=== PATIENT | male | born 1980 | race Caucasian/White ===

== ENCOUNTER 2017-09-05 15:00 | Inpatient (IN) | payer BC ==
[~2017-09-05] VITALS: Ht 180.3 cm; Wt 137.0 kg
[2017-09-05 16:40] LABS: CALCIUM 8.8 mg/dL (8.5-10.1); CARBON DIOXIDE 26.2 mmol/L (21-32); CHLORIDE SERUM 97 mmol/L (98-107); GFR1 > 60 mL/min; GLUCOSE SERUM 187 mg/dL (74-106); POTASSIUM SERUM 3.7 mmol/L (3.5-5.1); SODIUM SERUM 133 mmol/L (136-145)
[2017-09-05 16:51] LABS: PLATELET COUNT 257 x10^3mcL (130-400)
[2017-09-05 16:52] LABS: BASOPHIL % 0 % (0-2)
[2017-09-05] MEDS ORDERED: METFORMIN HCL500 MG PO (19:01)
[2017-09-05 19:45] VITALS: BP 139/75
[2017-09-05 19:47] VITALS: Ht 180.3 cm; Wt 137.0 kg
[2017-09-05 20:22] LABS: MAGNESIUM 1.8 mg/dL (1.8-2.4); PHOSPHOROUS 2.9 mg/dL (2.5-4.9)
[2017-09-05 20:24] LABS: CHOLESTEROL/HDL RATIO 5.3
[2017-09-05 20:29] LABS: T3 TOTAL 0.72 ng/mL
[2017-09-05 20:41] LABS: FREE T4 1.2 ng/dL (0.76-1.46); FREE THYROXINE INDEX 2.6 ug/dL (1.4-4.5)
[2017-09-06 00:26] LABS: UA SPECIFIC GRAVITY <=1.005 (1.005-1.035); microscopic required? YES; urine erythrocyte TRACE (NEGATIVE)
[2017-09-06 05:30] VITALS: BP 113/52
[2017-09-06 06:11] LABS: PLATELET COUNT 238 x10^3mcL (130-400); RED CELL DISTRIBUTION WIDTH 13.1 % (11.5-14.5)
[2017-09-06 06:27] LABS: CALCIUM 8.8 mg/dL (8.5-10.1); CARBON DIOXIDE 24.4 mmol/L (21-32); CHLORIDE SERUM 99 mmol/L (98-107); CREATININE SERUM 0.9 mg/dL (0.7-1.3); GFR1 > 60 mL/min; GLUCOSE SERUM 191 mg/dL (74-106); POTASSIUM SERUM 3.4 mmol/L (3.5-5.1); SODIUM SERUM 136 mmol/L (136-145)
[2017-09-06 06:34] LABS: BASOPHIL % 0 % (0-2)
[2017-09-06 08:00] VITALS: BP 139/70
[2017-09-06 09:31] VITALS: BP 116/77
[2017-09-06 12:48] VITALS: BP 113/62
[2017-09-06 17:03] VITALS: BP 152/84
[2017-09-06 21:05] VITALS: BP 150/75
[2017-09-07 05:29] VITALS: BP 132/76
[2017-09-07 06:59] LABS: CARBON DIOXIDE 26.2 mmol/L (21-32); CHLORIDE SERUM 101 mmol/L (98-107); CREATININE SERUM 0.9 mg/dL (0.7-1.3); GFR1 > 60 mL/min; GLUCOSE SERUM 185 mg/dL (74-106); MAGNESIUM 2.1 mg/dL (1.8-2.4); PHOSPHOROUS 2.8 mg/dL (2.5-4.9); POTASSIUM SERUM 3.7 mmol/L (3.5-5.1); SODIUM SERUM 137 mmol/L (136-145)
[2017-09-07 07:02] LABS: BASOPHIL % 0 % (0-2); PLATELET COUNT 251 x10^3mcL (130-400); RED CELL DISTRIBUTION WIDTH 13.1 % (11.5-14.5)
[2017-09-07 09:40] VITALS: BP 147/69
[2017-09-07 13:58] LABS: RED BLOOD CELLS 4.4 M/mm3 (4.52-5.90)
[2017-09-07 14:18] LABS: IRON 19 ug/dL (65-170); TOTAL IRON BINDING CAPACITY 195 ug/dL (250-450)
[2017-09-07 17:15] VITALS: BP 153/78
[2017-09-07 20:42] VITALS: BP 149/66
[2017-09-08 05:38] VITALS: BP 147/79
[2017-09-08 07:02] LABS: BASOPHIL % 0.2 % (0-2); PLATELET COUNT 255 x10^3mcL (130-400); RED CELL DISTRIBUTION WIDTH 13.1 % (11.5-14.5)
[2017-09-08 08:27] LABS: CALCIUM 8.9 mg/dL (8.5-10.1); CARBON DIOXIDE 23.8 mmol/L (21-32); CHLORIDE SERUM 102 mmol/L (98-107); CREATININE SERUM 0.9 mg/dL (0.7-1.3); GFR1 > 60 mL/min; GLUCOSE SERUM 167 mg/dL (74-106); MAGNESIUM 2.2 mg/dL (1.8-2.4); POTASSIUM SERUM 3.7 mmol/L (3.5-5.1); SODIUM SERUM 138 mmol/L (136-145)
[2017-09-08 10:09] VITALS: BP 131/78
[2017-09-08] MEDS ORDERED: APAP/HYDROCODON1 T13 PO (10:32)
[2017-09-08] MEDS ORDERED: LIPI20 PO (10:34)
[2017-09-08] MEDS ORDERED: LAC PO (10:34)
[2017-09-08] MEDS ORDERED: CLINDAMYCIN HC300 MG PO (10:34)
[2017-09-08] MEDS ORDERED: GLU500 PO (10:34)
[2017-09-08] MEDS ORDERED: LEVAQUIN750 MG PO (10:34)
[2017-09-08] MEDS ORDERED: ECO81 PO (10:34)
[2017-09-08] MEDS ORDERED: NYSTATIN100000 U/M PO (10:34)
== END 2017-09-08 15:18 | disposition home or self-care (01) | DRG 872 ==
LOC: ED 15:00 → MU 18:50 → DU 18:50 → MU 09-06 10:37
PROVIDERS: Emergency Medicine Emergency Medical Services; Family Medicine
DX: A41.9 Sepsis, unspecified organism (principal); L03.115 Cellulitis of right lower limb; E87.1 Hypo-osmolality and hyponatremia; D50.9 Iron deficiency anemia, unspecified; E11.65 Type 2 diabetes mellitus with hyperglycemia; B35.3 Tinea pedis; E87.6 Hypokalemia; E78.2 Mixed hyperlipidemia; Z87.820 Personal history of traumatic brain injury; Z79.84 Long term (current) use of oral hypoglycemic drugs
CPT/HCPCS: 82962; 83880; 84439; J1644; J1815; J1885; J1940; J1956; J2270; J3490; J7030; Q0092